=== PATIENT | female | born 1950 | race Caucasian/White ===

== ENCOUNTER 2023-09-25 02:04 | Emergency (ER) | payer OTHER ==
[2023-09-25 02:16] VITALS: BMI 38.3
[2023-09-25 03:23] LABS: BASO % 1.3 % (0-2.0); EOS % 3.4 % (0-4.5); HEMATOCRIT 26.3 % (32.4-45.2); HEMOGLOBIN 8.3 GM/dL (10.7-15.3); LYMPH % 15.3 % (8-40); MCH 22.5 pg (25.7-33.7); MCHC 31.5 g/dl (32.0-36.0); MEAN CELL VOLUME 71.5 fl (80-96); MEAN PLT VOLUME 8.7 fl (7.5-11.1); MONO % 8.2 % (3.8-10.2); NEUT % 71.8 % (42.8-82.8); PLATELET COUNT 208 10^3/uL (134-434); RBC 3.68 M/mm3 (3.60-5.2); RDW 18.4 % (11.6-15.6); WHITE BLOOD COUNT 7.2 K/mm3 (4.0-10.0)
[2023-09-25 03:25] LABS: INR 1.5 (0.83-1.09)
[2023-09-25 03:28] LABS: ACTIVATED PTT 36.9 SECONDS (25.2-36.5)
[2023-09-25 03:52] LABS: POTASSIUM 4.3 mmol/L (3.5-5.1)
[2023-09-25 03:54] LABS: CALCIUM 8.6 mg/dL (8.5-10.1)
[2023-09-25 03:55] LABS: ALBUMIN 2.7 g/dl (3.4-5.0); BLOOD UREA NITROGEN 26.5 mg/dL (7-18)
[2023-09-25 03:58] LABS: CREATININE 1.2 mg/dL (0.55-1.3)
[2023-09-25] MEDS ORDERED: ACETAMINOPHEN INJECTION 100 ML IVPB ONE (03:58)
[2023-09-25 03:59] LABS: BILIRUBIN,TOTAL 0.4 mg/dL (0.2-1); TOT PROT 6.3 g/dl (6.4-8.2)
[2023-09-25] MEDS: ACETAMINOPHEN 1000 MG/100 ML BAG IVPB ONE (04:03)
[2023-09-25 06:49] LABS: EPI CELLS >36 /uL (0-25.1); HYALINE CASTS 3 /uL (0-3.1); URINE APPEARANCE TURBID; URINE BILIRUBIN 2+ (NEGATIVE); URINE COLOR RED; URINE GLUCOSE (UA) 2+ (NEGATIVE); URINE KETONE NEGATIVE (NEGATIVE); URINE LEUK ESTERASE 3+ (NEGATIVE); URINE NITRITE POSITIVE (NEGATIVE); URINE PROTEIN 2+ (NEGATIVE); URINE RBC 184 /uL (0-23.9); URINE UROBILINOGEN 0.2 mg/dL (0.2-1.0); URINE WBC 9 /uL (0-25.8)
[2023-09-25] MEDS ORDERED: morphine SULFATE 4 MG/ML VIAL ONE (07:52)
[2023-09-25] MEDS: morphine CARPU-JECT 4 MG/1 ML DISP.SYRIN IVPUSH ONE (08:03)
[2023-09-25 08:22] LABS: PH,URINE 5.5 (5.0-8.0)
[2023-09-25] MEDS: LACTATED RINGERS SOLUTION 1000 ML INFUS.BAG IV ONE (09:25)
[2023-09-25 09:34] VITALS: BP 156/53; PULSE 114; RESP 20; TEMP 98
[2023-09-25] MEDS ORDERED: SULFAMETHOXAZOLE/TRIMETHOPRIM 800MG/160MG D.S. TABLET ONE (09:44)
[2023-09-25] MEDS: SULFAMETHOXAZOLE/TRIMETHOPRIM 800MG/160MG D.S. TABLET PO ONE (09:48)
[2023-09-25] MEDS: PIPERACILLIN/TAZOB 4.5 GM 4.5 GM in DEXTROSE 5%-WATER 100 ML IVPB ONE (09:56)
== END 2023-09-25 11:11 ==
LOC: JER 02:04
PROC: 3E033NZ Introduction of Analgesics, Hypnotics, Sedatives into Peripheral Vein, Percutaneous Approach (ICD-10-PCS; principal; 2023-09-25)
PROC: 3E033NZ Introduction of Analgesics, Hypnotics, Sedatives into Peripheral Vein, Percutaneous Approach (ICD-10-PCS; 2023-09-25)
DX: N39.0 Urinary tract infection, site not specified (principal); N93.9 Abnormal uterine and vaginal bleeding, unspecified; R10.30 Lower abdominal pain, unspecified; R42 Dizziness and giddiness
CPT/HCPCS: 36415; 71045-TC-FY; 74177-TC; 80053; 81003; 84484; 85025; 85610; 85730; 86850; 86900; 86901; 87086; 93005; 93010; 96374; 96375; 99285-25; J0131; Q9967

== ENCOUNTER 2023-10-30 13:29 | Day surgery (SDC) | payer OTHER ==
[2023-10-30 13:50] VITALS: BMI 38.9
[2023-10-30 15:57] LABS: BASO % 0.7 % (0-2.0); EOS % 2.8 % (0-4.5); HEMATOCRIT 29.6 % (32.4-45.2); HEMOGLOBIN 8.9 GM/dL (10.7-15.3); LYMPH % 19.4 % (8-40); MCHC 30.2 g/dl (32.0-36.0); MEAN CELL VOLUME 69.5 fl (80-96); MEAN PLT VOLUME 8.7 fl (7.5-11.1); MONO % 7.1 % (3.8-10.2); PLATELET COUNT 206 10^3/uL (134-434); RBC 4.26 M/mm3 (3.60-5.2); RDW 21.1 % (11.6-15.6); WHITE BLOOD COUNT 8.4 K/mm3 (4.0-10.0)
[2023-10-30 16:04] LABS: INR 1.16 (0.83-1.09); PROTHROMBIN TIME (PATIENT) 13.3 SEC (9.7-13.0)
[2023-10-30 16:15] LABS: POTASSIUM 4.1 mmol/L (3.5-5.1)
[2023-10-30 16:16] LABS: CALCIUM 8.5 mg/dL (8.5-10.1)
[2023-10-30 16:17] LABS: ALBUMIN 2.7 g/dl (3.4-5.0)
[2023-10-30 16:20] LABS: CREATININE 1.3 mg/dL (0.55-1.3)
[2023-10-30 16:22] LABS: BILIRUBIN,TOTAL 0.4 mg/dL (0.2-1); TOT PROT 6.3 g/dl (6.4-8.2)
[2023-10-30 16:56] LABS: ANISOCYTOSIS 2+; MACROCYTOSIS 1+
[2023-10-30] MEDS ORDERED: GABAPENTIN 300 MG CAPSULE ONE (22:15)
[2023-10-30] MEDS ORDERED: ATORVASTATIN CA 20 MG TABLET (FP) ONE (22:15)
[2023-10-30] MEDS ORDERED: clonazePAM 0.5 MG TABLET ONE (22:15)
[2023-10-30] MEDS ORDERED: traZODone HCL 50 MG TABLET (FP) ONE (22:16)
[2023-10-30] MEDS ORDERED: HEPARIN NA (PORCINE) 5,000 UNITS/ML 1ML VIAL ONE (22:16)
[2023-10-30] MEDS ORDERED: FUROSEMIDE 40 MG/4 ML INJECTABLE VIAL ONE (22:16)
[2023-10-30] MEDS ORDERED: SERTRALINE HCL 50 MG TABLET (FP) ONE (22:16)
[2023-10-30] MEDS: clonazePAM 0.5 MG TABLET PO SCH (22:31)
[2023-10-30] MEDS: ATORVASTATIN CA 20 MG TABLET (FP) PO SCH (22:31)
[2023-10-30] MEDS: traZODone HCL 50 MG TABLET (FP) PO SCH (22:31)
[2023-10-30] MEDS: HEPARIN NA (PORCINE) 5,000 UNITS/ML 1ML VIAL SQ SCH (22:31)
[2023-10-30] MEDS: FUROSEMIDE 40 MG/4 ML INJECTABLE VIAL IVPUSH ONE (22:32)
[2023-10-30] MEDS: GABAPENTIN 100 MG CAPSULE PO SCH (22:32)
[2023-10-30] MEDS: SERTRALINE HCL 50 MG TABLET (FP) PO SCH (22:32)
[2023-10-30] MEDS: D5-1/2NS+20 MEQ KCL - 20 MEQ/1,000 ML INFUS.BAG IV SCH (22:45)
[2023-10-31 07:19] LABS: EOS % 3.2 % (0-4.5); HEMATOCRIT 31.8 % (32.4-45.2); HEMOGLOBIN 9.7 GM/dL (10.7-15.3); LYMPH % 17.8 % (8-40); MCH 21.6 pg (25.7-33.7); MCHC 30.6 g/dl (32.0-36.0); MEAN CELL VOLUME 70.4 fl (80-96); MEAN PLT VOLUME 8.6 fl (7.5-11.1); MONO % 6.6 % (3.8-10.2); NEUT % 71.4 % (42.8-82.8); PLATELET COUNT 197 10^3/uL (134-434); RBC 4.51 M/mm3 (3.60-5.2); RDW 21.1 % (11.6-15.6); WHITE BLOOD COUNT 7.8 K/mm3 (4.0-10.0)
[2023-10-31 07:35] LABS: POTASSIUM 3.5 mmol/L (3.5-5.1)
[2023-10-31 07:37] LABS: ALBUMIN 2.8 g/dl (3.4-5.0); CALCIUM 8.8 mg/dL (8.5-10.1)
[2023-10-31 07:38] LABS: BLOOD UREA NITROGEN 22.8 mg/dL (7-18); MAGNESIUM 1.9 mg/dL (1.8-2.4)
[2023-10-31 07:41] LABS: CREATININE 1.2 mg/dL (0.55-1.3)
[2023-10-31 07:42] LABS: BILIRUBIN,TOTAL 0.5 mg/dL (0.2-1); TOT PROT 6.1 g/dl (6.4-8.2)
[2023-10-31] MEDS ORDERED: PROPOFOL 20 ML ONE (08:15)
[2023-10-31] MEDS ORDERED: SUCCINYLCHOLINE CHLORIDE 200 MG/10 ML SYRINGE ONE (08:16)
[2023-10-31] MEDS ORDERED: ROCURONIUM BROMIDE 50 MG/5 ML SYRINGE ONE (08:16)
[2023-10-31] MEDS ORDERED: VASopressin 20 UNITS/ML VIAL IV ONE (08:20)
[2023-10-31] MEDS ORDERED: ceFAZolin SODIUM 1 GM VIAL ONE (09:16)
[2023-10-31] MEDS ORDERED: GENTAMICIN SO4 80 MG/2 ML VIAL ONE (09:16)
[2023-10-31] MEDS: ceFAZolin SODIUM 1 GM VIAL IVPB ONE (09:18)
[2023-10-31] MEDS: GENTAMICIN SO4 80 MG/2 ML VIAL IVPB ONE (09:20)
[2023-10-31] MEDS ORDERED: ONDANSETRON 4 MG/2 ML VIAL ONE (09:40)
[2023-10-31] MEDS ORDERED: ONDANSETRON 4 MG/2 ML VIAL IVPUSH PRN (09:54)
[2023-10-31] MEDS ORDERED: LACTATED RINGERS SOLUTION 1,000 ML IV SCH (10:00)
[2023-11-01] MEDS: LEVOTHYROXINE NA 25 MCG TABLET (FP) PO SCH (10:43)
[2023-11-01] MEDS: PANTOPRAZOLE 20 MG TABLET PO SCH (10:43)
[2023-11-01] MEDS: LURASIDONE HCL 40 MG TABLET PO SCH (10:44)
[2023-11-01 15:49] VITALS: BP 133/62; PULSE 75; RESP 19; TEMP 98.2
== END 2023-11-01 16:31 ==
LOC: JER 13:29 → JERBED 18:09 → UNDOADMOB 18:09 → INTOOBSV 18:09 → JERBED 10-31 10:06 → UNDOADMOB 10-31 10:06 → JERBED 10-31 20:58 → J7W 10-31 20:58 → JASUSAT 11-01 12:02 → J7W 11-01 12:21 → JASUSAT 11-01 16:31
PROVIDERS: ATTEND Internal Medicine
PROC: 0UDB8ZZ Extraction of Endometrium, Via Natural or Artificial Opening Endoscopic (ICD-10-PCS; principal; 2023-10-31 08:00)
PROC: 0TBB8ZX Excision of Bladder, Via Natural or Artificial Opening Endoscopic, Diagnostic (ICD-10-PCS; 2023-10-31 08:00)
DX: N95.0 Postmenopausal bleeding (principal); N32.89 Other specified disorders of bladder; R31.9 Hematuria, unspecified; D64.9 Anemia, unspecified; E11.9 Type 2 diabetes mellitus without complications
CPT/HCPCS: 36415; 36430; 71045-TC-FY; 80053; 82962; 83735; 84443; 85025; 85610; 85730; 86922; 93005; 93010; 94760; 99291; J1644; P9058